=== PATIENT | male | born 1935 | race Caucasian/White ===

== ENCOUNTER → 2017-02-18 | Day surgery (SDC) | payer MEDICARE, BC ==
[~2017-02-18] MED LIST: ATIVAN PO; HYDROCHLOROTHIA25 MG PO; LEVOTHYROXINE50 MCG PO; LEVSIN PO; LIPITOR20 MG PO; LISINOPRIL PO; PAXIL PO; SLEEP-AID25 MG PO; ZANTAC PO
--- NOTE | ~2017-02-18 | OR ---
Unit #: [id number] #: [id number] Patient: KEVIN ARMENDARIZ [id number] [address] [place], [place] [address] [id number] MR#: [id number] NAME: KEVIN ARMENDARIZ ROOM: Date of Procedure: 02/18/2017 Admission Date: 02/18/2017 Surgeon: Matthew Park Jr., M.D. : 1935 Attending Physician: Matthew Park Jr., M.D. Primary Care Physician: Jp Nielsen M.D. OPERATIVE REPORT INDICATION FOR PROCEDURE The patient is an 82-year-old white male, recently presented to the office with multiple complaints including some abdominal pain. He has had a history of colon cancer and colon resection and has had no recent endoscopies. It was felt he could have occult ulcer disease, possible recurrent cancer. He is brought back in for this at this time for upper and lower endoscopy. The patient understands the procedure including the risks, including that of perforation and bleeding, and consents. PREOPERATIVE DIAGNOSES Abdominal pain, past history of colon cancer, rule out occult ulcer disease, rule out recurrence of his cancer. POSTOPERATIVE DIAGNOSES On upper endoscopy, the patient was noted to have 1+ distal ulcerative esophagitis without stenosis and moderate hemorrhagic gastritis and on colonoscopy to the distal ileum, he was noted to have a previous subtotal colectomy with only short distal colon and questionable villous adenoma at 20 cm in the distal sigmoid, which was biopsied. ANESTHESIA MAC anesthesia. PROCEDURES PERFORMED Flexible fiberoptic esophagogastroduodenoscopy with antral biopsy for Helicobacter pylori and flexible colonoscopy to the distal ileum with biopsies of questionable villous adenoma at 20 cm. DESCRIPTION OF PROCEDURE The patient was positioned in Glover position with left side down. After being given MAC anesthesia, the Olympus XQ scope was passed through the proximal esophagus. The entire esophagus was examined. There was no evidence of any stenosis, but there was evidence of distal esophageal inflammation with some ulceration compatible with 1+ distal esophagitis. The scope was advanced through the GE junction, the cardia, and down to the fundic and antral region of the stomach and retroflexed back up to the area of the cardia, there were patchy areas of petechiae as well as erythematous areas compatible with moderate hemorrhagic gastritis. The scope was straightened and advanced down the prepyloric region, where a biopsy was taken from the antrum for H pylori without significant bleeding. The scope was advanced through the pylorus and the duodenal Unit #: [id number] #: [id number] Patient: KEVIN ARMENDARIZ bulb and down to the second portion of the duodenum. The entire duodenal portion examination was within normal limits. The scope was then slowly removed. The patient repositioned for colonoscopy. Digital rectal examination was performed, which revealed no palpable mass or tenderness. No blood or stool in the rectal ampulla. The prostate was slightly enlarged, but otherwise not nodular or significantly indurated. The Olympus colonoscope was advanced through the anal canal up the rectum and retroflexed down to the area of the anorectal region. There was no evidence of any fissures and no significant internal hemorrhoids. The scope was then straightened and advanced up in the rectosigmoid area and the sigmoid at 20 cm, there was a patchy area of irregular mucosa possibly related to villous adenoma. Several biopsies were taken from this without significant bleeding. The scope was then advanced up to blind limbs, which were appeared normal and up into the proximal terminal ileum approximately 2 feet with no evidence of any ileitis or inflammatory bowel disease. The scope was slowly removed. The patient tolerated the procedure well and discharged in satisfactory condition. Dictated by... Matthew Park Jr., MDede KHAN/xin TD: 02/19/2017 00:57 JOB #: [id number] OPERATIVE REPORT Page 1 of 1 X Matthew Park MD X PROCEDURE OPERATIVE NOTE
== END | disposition home or self-care (01) ==
LOC: COPS 10:41
DX: K63.5 Polyp of colon (principal); K22.10 Ulcer of esophagus without bleeding; K29.71 Gastritis, unspecified, with bleeding; K21.9 Gastro-esophageal reflux disease without esophagitis; K59.00 Constipation, unspecified; E78.5 Hyperlipidemia, unspecified; I10 Essential (primary) hypertension; E03.9 Hypothyroidism, unspecified; G47.30 Sleep apnea, unspecified; F32.9 Major depressive disorder, single episode, unspecified; F41.9 Anxiety disorder, unspecified; F17.210 Nicotine dependence, cigarettes, uncomplicated; Z85.038 Personal history of other malignant neoplasm of large intestine; Z79.899 Other long term (current) drug therapy; Z90.49 Acquired absence of other specified parts of digestive tract
CPT/HCPCS: 87077; 88305